=== PATIENT | female | born 1985 | race Caucasian/White ===

== ENCOUNTER 2024-01-28 02:18 | Emergency (ER) | payer BC ==
[~2024-01-28] VITALS: Ht 152.4 cm; Wt 79.1 kg
[2024-01-28] MEDS ORDERED: PEPCID AC20 M2 PO (02:32)
[2024-01-28] MEDS ORDERED: Ibuprofen 800 MG TAB PO ONE (02:45)
[2024-01-28 03:17] LABS: ALBUMIN 3.7 g/dL (3.5-5.0)
[2024-01-28 03:18] LABS: BASO # 0.02 K/mm3 (0.02-0.10); EOS # 0.33 K/mm3 (0.04-0.40); EOS % 4.1 % (1.0-5.0); HEMATOCRIT 35.7 % (37.0-47.0); LYMPH# 1.64 K/mm3 (1.50-4.00); MEAN CELL VOLUME 88 fl (78-100); MEAN CORPUSCULAR HEMOGLOBIN 30 pg (27-31); MEAN CORPUSCULAR HGB CONC 34 g/dL (33-37); MEAN PLATELET VOLUME 10.8 fl (7.4-10.4); MONO # 0.62 K/mm3 (0.20-0.80); NEU # 5.42 K/mm3 (1.40-6.50); PLATELET COUNT 213 K/mm3 (130-400); RED BLOOD COUNT 4.04 M/mm3 (4.10-5.30); RED CELL DISTRIBUTION WIDTH 13.1 % (11.5-14.5)
[2024-01-28 03:19] LABS: CALCIUM 8.3 mg/dL (8.3-10.5)
[2024-01-28 03:22] LABS: TOTAL BILIRUBIN 0.4 mg/dL (0.2-1.2)
[2024-01-28 04:15] VITALS: BP 120/63
== END 2024-01-28 04:15 | disposition home or self-care (01) ==
LOC: ED 02:18
PROVIDERS: Physician Assistant
DX: N93.9 Abnormal uterine and vaginal bleeding, unspecified (principal); E87.6 Hypokalemia